=== PATIENT | female | born 1945 | race Two or more races ===

== ENCOUNTER 2023-09-07 09:01 | Day surgery (SDC) | payer BC ==
[~2023-09-07] VITALS: Ht 157.5 cm; Wt 88.9 kg
[~2023-09-07 09:01] MED LIST: CHOL200010 PO; CYAN-17 PO; FLUO20TA36 PO; LEVO150T10 PO; LISI20TA56 PO; LOVA40TA72 PO; MULT-1166 PO; SEMA2INJ3 SC
[2023-09-07] MEDS ORDERED: PROPOFOL 10 MG/ML 20 ML IV ONE (09:29)
[2023-09-07] MEDS ORDERED: SODIUM CHLORIDE LOCK 10 ML ONE ×2 (09:29→11:26)
[2023-09-07] MEDS ORDERED: ONDANSETRON HCL 4 MG/2 ML VIAL ONE (09:29)
[2023-09-07] MEDS ORDERED: fentaNYL CITRATE 100 MCG/2 ML VL ONE (09:29)
[2023-09-07] MEDS ORDERED: MIDAZOLAM HCL 2MG/2ML 2ml VIAL (1mg/ml) ONE (09:29)
[2023-09-07] MEDS ORDERED: DexAMETHasone SOD PHOS 10MG/1ML VIAL INJ ONE (09:29)
[2023-09-07 09:38] VITALS: TEMP 97.9
[2023-09-07] MEDS ORDERED: ceFAZolin 2 GM/D5W100ml 100 ML IV ONE (09:43)
[2023-09-07] MEDS ORDERED: ACCU-CHEK COMFORT CURVE STRIP VI ONE (10:15)
[2023-09-07] MEDS ORDERED: MORPHINE SULFATE INJ 2 MG/ml SYRG IV PRN (10:15)
[2023-09-07] MEDS ORDERED: METOCLOPRAMIDE HCL 5MG/ml INJ 2ml VIAL IV PRN (10:15)
[2023-09-07] MEDS ORDERED: HYDROmorphone HCL 2 MG/ML VL/or syr IV PRN ×2 (10:15)
[2023-09-07] MEDS ORDERED: VANCOMYCIN HCL 1000 MG VL ONE (10:17)
[2023-09-07] MEDS ORDERED: TETRACAINE 1% INJ 2 ML VIAL IJ ONE (10:18)
[2023-09-07] MEDS ORDERED: DexAMETHasone SOD PHOS 4 MG/1ML SDV INJ ONE (11:25)
[2023-09-07 11:58] VITALS: O2SAT 95
[2023-09-07 18:13] VITALS: BP 112/64; PULSE 67; RESP 15; O2SAT 97
[2023-09-08] MEDS ORDERED: ATORVASTATIN 20 MG TAB PO SCH (10:00)
[2023-09-08] MEDS ORDERED: LEVOTHYROXINE SODIUM 50 MCG TAB PO SCH (10:00)
[2023-09-08] MEDS ORDERED: FLUoxetine HCL 20 MG CAP PO SCH (10:00)
== END 2023-09-07 18:27 | disposition home or self-care (01) ==
LOC: SUR 09:01
PROVIDERS: ATTEND Orthopaedic Surgery
DX: M17.0 Bilateral primary osteoarthritis of knee (principal); I10 Essential (primary) hypertension; F41.9 Anxiety disorder, unspecified; Z79.899 Other long term (current) drug therapy; Z98.890 Other specified postprocedural states; E66.9 Obesity, unspecified; Z68.39 Body mass index [BMI] 39.0-39.9, adult; E11.9 Type 2 diabetes mellitus without complications; J44.9 Chronic obstructive pulmonary disease, unspecified
CPT/HCPCS: 27447; 82962; 86850; 86900; 86901; J1100; J2250; J2405; J2704; J3010; J3370

== ENCOUNTER 2024-01-11 08:06 | Inpatient (IN) | payer BC ==
[2024-01-11] VITALS (8 sets, daily range): BP systolic 102–132; BP diastolic 62–83; PULSE 59–89; RESP 13–20; TEMP 97.5–98.1; O2SAT 87–99
[~2024-01-11] VITALS: Ht 157.5 cm; Wt 116.9 kg
[~2024-01-11 08:06] MED LIST changes: +FERR325T20 PO; -FLUO20TA36 PO; +KETOROLAC TROMETH 30 MG/ML 1ML VIAL ONE; -LOVA40TA72 PO; +MORPHINE SULF PF 5 MG/10 ML VIAL ONE; -MULT-1166 PO; -SEMA2INJ3 SC
[2024-01-11] MEDS ORDERED: MIDAZOLAM HCL 2MG/2ML 2ml VIAL (1mg/ml) ONE (08:58)
[2024-01-11] MEDS ORDERED: MORPHINE SULF PF 5 MG/10 ML VIAL ONE (08:58)
[2024-01-11] MEDS ORDERED: fentaNYL CITRATE 100 MCG/2 ML VL ONE (08:58)
[2024-01-11] MEDS ORDERED: HYDROmorphone HCL 2 MG/ML VL/or syr IV PRN (09:45)
[2024-01-11] MEDS ORDERED: ONDANSETRON HCL 4 MG/2 ML VIAL IV PRN (09:45)
[2024-01-11] MEDS ORDERED: DexAMETHasone SOD PHOS 10MG/1ML VIAL INJ IV PRN (09:45)
[2024-01-11] MEDS ORDERED: ePHEDrine SULFATE 50 MG/ML AMP IV PRN (09:45)
[2024-01-11] MEDS ORDERED: MIDAZOLAM HCL 2MG/2ML 2ml VIAL (1mg/ml) IV PRN (09:45)
[2024-01-11] MEDS ORDERED: MORPHINE SULFATE 4 MG/ML SYR/VIAL IV PRN (09:45)
[2024-01-11] MEDS ORDERED: NALOXONE HCL 0.4 MG/ML VIAL IV PRN (09:45)
[2024-01-11] MEDS ORDERED: LABETALOL HCL 5 MG/ML 4ML SYRINGE IV PRN (09:45)
[2024-01-11] MEDS ORDERED: DexAMETHasone SOD PHOS 10MG/1ML VIAL INJ ONE (10:37)
[2024-01-11] MEDS ORDERED: ACETAMINOPHEN 325 MG TAB PO PRN (11:45)
[2024-01-11] MEDS ORDERED: oxyCODONE HCL 5MG TAB PO PRN ×2 (11:45)
[2024-01-11] MEDS: TRANEXAMIC ACID 20 ML ONE (16:44)
[2024-01-11] MEDS: DexAMETHasone SOD PHOS 4 MG/1ML SDV INJ ONE (16:45)
[2024-01-11] MEDS: TETRACAINE 1% INJ 2 ML VIAL IJ ONE (16:45)
[2024-01-11] MEDS: ceFAZolin 2 GM/D5W50ml 50 ML IV ONE (16:45)
[2024-01-11] MEDS: BUPIVACAINE W/ EPINEPH 0.5% INJ 50ML MDV IJ ONE (16:45)
[2024-01-11] MEDS: VANCOMYCIN HCL 1000 MG VL ONE (16:45)
[2024-01-11] MEDS: D5W/LACTATED RINGERS 1,000 ML IV SCH (16:46)
[2024-01-11] MEDS: KETOROLAC TROMETH 30 MG/ML 1ML VIAL IV SCH (17:41)
[2024-01-11] MEDS: ACETAMINOPHEN 325 MG TAB PO SCH (17:41)
[2024-01-11] MEDS: PREGABALIN 25 MG CAP PO SCH (21:18)
[2024-01-11] MEDS: ceFAZolin 2 GM/D5W50ml 50 ML IV SCH (22:00)
[2024-01-12] VITALS (8 sets, daily range): BP systolic 98–125; BP diastolic 54–64; PULSE 68–94; RESP 17–20; TEMP 97.7–98.5; O2SAT 92–95
[2024-01-12] MEDS: LEVOTHYROXINE SODIUM 50 MCG TAB PO SCH (06:39)
[2024-01-12 07:33] LABS: Calcium 9.2 mg/dL (8.5-10.1); Chloride 104 mmol/L (98-107); Potassium 4.4 mmol/L (3.5-5.1); Sodium 135 mmol/L (136-145)
[2024-01-12 07:34] LABS: Anion Gap 7 (5-15); Carbon Dioxide 24 mmol/L (20-30)
[2024-01-12 07:39] LABS: BUN/Creatinine Ratio 30.9 (10.0-20.0); Blood Urea Nitrogen 25 mg/dL (9-23); Glucose 132 mg/dL (74-106)
[2024-01-12 07:46] LABS: Basophils # (auto) 0 10 ^3/uL (0-0.2); Basophils % (auto) 0.1 % (0.0-2.0); Eosinophils # (auto) 0 10 ^3/uL (0-0.8); Hematocrit 35.2 % (36.0-46.0); Hemoglobin 11.7 g/dL (12.2-16.2); Lymphocytes # (auto) 0.7 10 ^3/uL (0.4-5.4); Lymphocytes % (auto) 4.8 % (10.0-50.0); Mean Corpuscular Hemoglobin 30.7 pg (28.0-32.0); Mean Corpuscular Hgb Conc. 33.3 g/dL (32.0-36.0); Mean Corpuscular Volume 92.2 fL (80.0-100.0); Monocytes # (auto) 0.9 10 ^3/uL (0-1.3); Monocytes % (auto) 6.4 % (0.0-12.0); Neutrophils # (auto) 12.6 10 ^3/uL (1.6-8.6); Neutrophils % (auto) 88.7 % (37.0-80.0); Red Blood Cells 3.82 10^6/uL (4.0-5.20); Red Cell Distribution Width 14.6 % (11.8-14.3); White Blood Cell 14.2 10^3/uL (4.4-10.8)
[2024-01-12] MEDS: LISINOPRIL 20 MG TAB PO SCH (10:00)
[2024-01-12] MEDS: ASPirin 81 mg TAB PO SCH (10:01)
== END 2024-01-12 16:27 | disposition home health service (06) | DRG 470 ==
LOC: SUR 08:06 → TELE 12:04 → TELE-WESTW 15:40
PROVIDERS: ADMIT Orthopaedic Surgery; ATTEND Orthopaedic Surgery
PROC: 0SRD069 Replacement of Left Knee Joint with Oxidized Zirconium on Polyethylene Synthetic Substitute, Cemented, Open Approach (ICD-10-PCS; principal; 2024-01-11 09:20)
DX: M17.12 Unilateral primary osteoarthritis, left knee (principal); Z79.899 Other long term (current) drug therapy
CPT/HCPCS: 36415; 73562; 80048; 85025; 86850; 86900; 86901; 87081; 97163; G0378; J1100; J1885; J2250

== ENCOUNTER 2024-01-17 12:17 | Emergency (ER) | payer BC ==
[~2024-01-17] VITALS: Ht 157.5 cm; Wt 90.9 kg
[~2024-01-17 12:17] MED LIST changes: -KETOROLAC TROMETH 30 MG/ML 1ML VIAL ONE; -MORPHINE SULF PF 5 MG/10 ML VIAL ONE
[2024-01-17 14:29] LABS: Basophils # (auto) 0.1 10 ^3/uL (0-0.2); Eosinophils # (auto) 0.2 10 ^3/uL (0-0.8); Eosinophils % (auto) 2.3 % (0.0-7.0); Hematocrit 34.7 % (36.0-46.0); Hemoglobin 11.6 g/dL (12.2-16.2); Lymphocytes # (auto) 1.6 10 ^3/uL (0.4-5.4); Mean Corpuscular Hemoglobin 30.5 pg (28.0-32.0); Mean Corpuscular Hgb Conc. 33.4 g/dL (32.0-36.0); Mean Corpuscular Volume 91.4 fL (80.0-100.0); Monocytes # (auto) 0.7 10 ^3/uL (0-1.3); Monocytes % (auto) 7.7 % (0.0-12.0); Neutrophils # (auto) 6.6 10 ^3/uL (1.6-8.6); Nucleated Red Blood Cells % 0.2 %; White Blood Cell 9.2 10^3/uL (4.4-10.8)
[2024-01-17 14:51] LABS: INR 1.09 (0.9-1.15); Prothrombin Time 11.5 sec (9.3-11.8)
[2024-01-17 16:11] VITALS: BP 143/68; PULSE 75; RESP 18; TEMP 97.9; O2SAT 97
== END 2024-01-17 16:15 | disposition home or self-care (01) ==
LOC: ER 12:17
DX: L76.82 Other postprocedural complications of skin and subcutaneous tissue (principal); I10 Essential (primary) hypertension; E78.5 Hyperlipidemia, unspecified; R60.9 Edema, unspecified
CPT/HCPCS: 36415; 85025; 85610; 86850; 86900; 86901; 93971